=== PATIENT | female | born 1960 | race Two or more races ===

== ENCOUNTER 2021-07-22 06:03 | Emergency (ER) | payer OTHER ==
[~2021-07-22] VITALS: Ht 152.4 cm; Wt 68.9 kg
[~2021-07-22 06:03] MED LIST: DURICEF500 MG PO; EC-NAPROSYN500 MG PO
[2021-07-22] MEDS ORDERED: INTESTINEX680 M1 PO (09:44)
[2021-07-22] MEDS ORDERED: AMOX-CLAV 875-1 EAC1 PO (09:44)
[2021-07-22] MEDS ORDERED: MUPIROCIN15 GM TOP (09:44)
== END 2021-07-22 10:16 ==
LOC: ER 06:03
DX: L01.09 Other impetigo (principal); H00.031 Abscess of right upper eyelid; H57.89 Other specified disorders of eye and adnexa

== ENCOUNTER 2023-04-20 08:02 | Emergency (ER) | payer OTHER ==
[~2023-04-20] VITALS: Ht 157.5 cm; Wt 67.1 kg
[~2023-04-20 08:02] MED LIST changes: +AMOX-CLAV 875-1 EAC1 PO; +INTESTINEX680 M1 PO; +MUPIROCIN15 GM TOP
== END 2023-04-20 12:52 | disposition home or self-care (01) ==
LOC: ER 08:02
DX: J10.1 Influenza due to other identified influenza virus with other respiratory manifestations (principal); Z20.822 Contact with and (suspected) exposure to COVID-19

== ENCOUNTER 2024-01-17 05:32 | Emergency (ER) | payer OTHER ==
[~2024-01-17] VITALS: Ht 149.9 cm; Wt 66.7 kg
[2024-01-17] MEDS ORDERED: BUTALB/ACETAMINOPHEN/CAFFEINE 1 TAB TABLET PO ONE (09:00)
[2024-01-17 09:03] LABS: HEMATOCRIT 42.1 % (36.0-45.00); HEMOGLOBIN 14.4 g/dL (12.0-15.00); MEAN CELL VOLUME 100.4 fL (80.00-100.00); MEAN CORPUSCULAR HEMOGLOBIN 34.4 pg (27.00-32.0); MEAN CORPUSCULAR HGB CONC 34.3 g/dl (32.0-36.0); PLATELET COUNT 178 K/uL (150-450); RED BLOOD COUNT 4.19 M/uL (4.00-6.00); RED CELL DISTRIBUTION WIDTH 13.3 % (11.5-14.5)
[2024-01-17 09:50] LABS: CALCIUM 9.8 mg/dL (8.5-10.1); CREATININE SERUM 0.6 mg/dL (0.55-1.02); GFR 100.97; POTASSIUM 4.26 mEq/L (3.5-5.1)
== END 2024-01-17 10:33 | disposition home or self-care (01) ==
LOC: ER 05:33
PROVIDERS: Emergency Medicine
DX: J32.9 Chronic sinusitis, unspecified (principal); Z20.822 Contact with and (suspected) exposure to COVID-19